=== PATIENT | female | born 1995 | race Asian ===

== ENCOUNTER 2016-03-15 00:04 | Emergency (ER) | payer OTHER ==
[~2016-03-15] VITALS: Ht 162.6 cm; Wt 52.9 kg
[2016-03-15 00:06] VITALS: TEMP 37.3; Ht 162.6 cm; Wt 52.9 kg
[2016-03-15 00:42] LABS: BASO % 1.2 %; BASO ABS # 0.05 K/uL (0-0.2); HEMATOCRIT 34.6 % (37-47); LYMPH % 21.1 %; LYMPH ABS # 0.87 K/uL (1.2-3.4); MEAN CELL VOLUME 73.9 fL (80-100); MEAN CORPUSCULAR HEMOGLOBIN 22.6 pg (25-34); MEAN CORPUSCULAR HGB CONC 30.6 g/dl (32-36); MEAN PLATELET VOLUME 9.2 fL (7.4-10.4); MONO % 5.1 %; NEUT % 72.6 %; PLATELET COUNT 274 K/uL (130-400); RED BLOOD COUNT 4.68 M/uL (4.2-5.4); WHITE BLOOD COUNT 4.13 K/uL (4.8-10.8)
--- NOTE | 2016-03-15 00:42 | EMERGENCY ROOM VISIT NOTE ---
History Report prepared by Guilherme: Cat Fraser Under the Supervision of: Dr. Omar Flores M.D. First contact with patient: 00:15 Chief Complaint: MENTAL HEALTH EVALUATION Stated Complaint: SENT BY [facility] History of Present Illness The patient is a 20 year old female who presents to the Emergency Room with complaints of issues with self-induced vomiting occurring for the past 2 years and resolving 3 weeks ago. The patient had an eating disorder since high school but reports that she was never treated for it. However, she reports that she has not forced herself to vomit in the past 3 weeks. She has been on a healthy diet for the past 3 weeks. In the past few weeks, she has gained 10 pounds and now weighs 115 pounds. Today, she had to answer some questions about an incident regarding a friend. She had to tell the officer that she had a history of eating disorder symptoms. She has never been diagnosed with an eating disorder and has never received any lab work. She denies any history of depression. The patient does not follow with a psychiatrist or counselor. The officer suggested that she comes to the Emergency Room. She currently denies any suicidal or homicidal ideation. She currently denies any pain. The patient denies any fevers, abdominal pain, body aches, or any other complaints. The patient denies any chance of . She denies any drug or alcohol use. She denies any control medication. Source of History: patient Onset: 2 years ago Position: other (global) Symptom Intensity: No pain Quality: other (issues with self-induced vomiting) Associated Symptoms: No abdominal pain, No fevers Review of Systems See HPI for pertinent positives & negatives. A total of 10 systems reviewed and were otherwise negative. Past Medical & Surgical Medical Problems: (1) No Known Active Medical Problems Family History Patient reports no known family medical history. Social History Smoking Status: Never Smoker Marital Status: single Occupation Status: [employer] student Current/Historical Medications No Active Prescriptions or Reported Meds Allergies Coded Allergies: No Known Allergies (Unverified , 03/15/16) Physical Exam Vital Signs Date Time Temp Pulse Resp B/P Pulse Ox O2 Delivery O2 Flow Rate FiO2 03/15/16 04:22 58 18 99/78 99 Room Air 03/15/16 02:15 55 16 90/49 99 Room Air 03/15/16 00:06 37.3 70 18 130/86 94 Room Air Physical Exam GENERAL: Patient is sad appearing and in minimal distress. HEENT: No acute trauma, normocephalic atraumatic, mucous membranes moist, no nasal congestion, no scleral icterus. NECK: No stridor, no adenopathy, no meningismus, trachea is midline. LUNGS: No dyspnea. Clear to auscultation and equal bilaterally. No wheeze, no rhonchi. HEART: Regular rate and rhythm. No murmurs, rubs, gallops appreciated. ABDOMEN: Soft, nontender, bowel sounds positive, no masses appreciated, no peritonitis. BACK: No midline tenderness, no CVA tenderness EXTREMITIES: Normal motion all extremities, no cyanosis, no edema. NEUROLOGIC: Alert and oriented, no acute motor or sensory deficits, no focal weakness, cranial nerves grossly intact. SKIN: No rash, no jaundice, no diaphoresis. Medical Decision & Procedures Laboratory Results 03/15/16 00:28 Red Blood Count 4.68, Mean Corpuscular Volume 73.9, Mean Corpuscular Hemoglobin 22.6, Mean Corpuscular Hemoglobin Concent 30.6, Mean Platelet Volume 9.2, Neutrophils (%) (Auto) 72.6, Lymphocytes (%) (Auto) 21.1, Monocytes (%) (Auto) 5.1, Eosinophils (%) (Auto) 0.0, Basophils (%) (Auto) 1.2, Neutrophils # (Auto) 3.00, Lymphocytes # (Auto) 0.87, Monocytes # (Auto) 0.21, Eosinophils # (Auto) 0.00, Basophils # (Auto) 0.05 03/15/16 00:28 Test 03/15/16 00:28 03/15/16 01:00 White Blood Count 4.13 K/uL (4.8-10.8) Red Blood Count 4.68 M/uL (4.2-5.4) Hemoglobin 10.6 g/dL (12.0-16.0) Hematocrit 34.6 % (37-47) Mean Corpuscular Volume 73.9 fL (80-100) Mean Corpuscular Hemoglobin 22.6 pg (25-34) Mean Corpuscular Hemoglobin Concent 30.6 g/dl (32-36) Platelet Count 274 K/uL (130-400) Mean Platelet Volume 9.2 fL (7.4-10.4) Neutrophils (%) (Auto) 72.6 % Lymphocytes (%) (Auto) 21.1 % Monocytes (%) (Auto) 5.1 % Eosinophils (%) (Auto) 0.0 % Basophils (%) (Auto) 1.2 % Neutrophils # (Auto) 3.00 K/uL (1.4-6.5) Lymphocytes # (Auto) 0.87 K/uL (1.2-3.4) Monocytes # (Auto) 0.21 K/uL (0.11-0.59) Eosinophils # (Auto) 0.00 K/uL (0-0.5) Basophils # (Auto) 0.05 K/uL (0-0.2) RDW Standard Deviation 39.4 fL (36.4-46.3) RDW Coefficient of Variation 15.0 % (11.5-14.5) Immature Granulocyte % (Auto) 0.0 % Immature Granulocyte # (Auto) 0.00 K/uL (0.00-0.02) Polychromasia 1+ Ovalocytes 1+ Anion Gap 8.0 mmol/L (3-11) Est Creatinine Clear Calc Drug Dose 107.1 ml/min Estimated GFR () 144.6 Estimated GFR (Non- 124.7 BUN/Creatinine Ratio 19.6 (10-20) Calcium Level 9.1 mg/dl (8.5-10.1) Phosphorus Level 3.1 mg/dl (2.5-4.9) Magnesium Level 2.4 mg/dl (1.8-2.4) Total Bilirubin 0.2 mg/dl (0.2-1) Aspartate Amino Transf (AST/SGOT) 28 U/L (15-37) Alanine Aminotransferase (ALT/SGPT) 32 U/L (12-78) Alkaline Phosphatase 95 U/L (45-117) Total Protein 7.8 gm/dl (6.4-8.2) Albumin 4.4 gm/dl (3.4-5.0) Globulin 3.4 gm/dl (2.5-4.0) Albumin/Globulin Ratio 1.3 (0.9-2) Thyroid Stimulating Hormone (TSH) 1.860 uIu/ml (0.300-4.500) Salicylates Level < 1.7 mg/dl (2.8-20) Acetaminophen Level < 2 ug/ml (10-30) Ethyl Alcohol mg/dL < 3.0 mg/dl (0-3) Urine Color YELLOW Urine Appearance CLOUDY (CLEAR) Urine pH >= 9.0 (4.5-7.5) Urine Specific [place] 1.021 (1.000-1.030) Urine Protein NEG (NEG) Urine Glucose (UA) NEG (NEG) Urine Ketones NEG (NEG) Urine Occult Blood NEG (NEG) Urine Nitrite NEG (NEG) Urine Bilirubin NEG (NEG) Urine Urobilinogen NEG (NEG) Urine Leukocyte Esterase MODERATE (NEG) Urine WBC (Auto) >30 /hpf (0-5) Urine RBC (Auto) 5-10 /hpf (0-4) Urine Hyaline Casts (Auto) 1-5 /lpf (0-5) Urine Epithelial Cells (Auto) >30 /lpf (0-5) Urine Bacteria (Auto) 1+ (NEG) Urine Test NEG (NEG) Urine Opiates Screen NEG (NEG) Urine Methadone, Qualitative NEG (NEG) Urine Barbiturates NEG (NEG) Urine Phencyclidine (PCP) Level NEG (NEG) Ur Amphetamine/Methamphetamine NEG (NEG) MDMA (Ecstasy) Screen NEG (NEG) Urine Benzodiazepines Screen NEG (NEG) Urine Cocaine Metabolite NEG (NEG) Urine Marijuana (THC) NEG (NEG) Laboratory results as reviewed by me. ED Course 0015: The patient was evaluated in room A02. A complete history and physical exam was performed. 0124: [address] [place] [address] is evaluating the patient. 0158: I reevaluated the patient who is doing well. She denies any UTI symptoms. 0348: The patient is still talking to [address] [place] [address]. 0409: Reevaluated the patient. Discussed results and discharge instructions: She verbalized understanding and agreement. The patient is ready for discharge. Medical Decision Differential: Mood Disorder, Overdose, Infectious, Electrolyte Abnormality, Cardiac, Hepatic, Endocrine, Toxicologic, Neurologic, amongst other pathologies entertained. 20 yr old female arrives under vague circumstances as she admits she and her friend were being interviewed by police but she refuses to say why they were talking to them (states "confidential.") She admits she told them she has eating disorder and they brought her here. Denies suicidal/homicidal ideation and even denies depression. States that bulimia has actually been much better last few weeks with weight gain and no vomiting in last few weeks. States she would like outpatient follow up and denies any need for inpatient treatment. She looks well, healthy and in no distress. Labs unremarkable and she has no drugs in system. She was evaluated by [facility] who will help in setting up outpatient care. Patient aware she can return at any time if she feels she is a risk to herself or others. Impression Primary Impression: Bulimia Additional Impression: Eating disorder Scribe Attestation The scribe's documentation has been prepared under my direction and personally reviewed by me in its entirety. I confirm that the note above accurately reflects all work, treatment, procedures, and medical decision making performed by me. Departure Information Dispostion Home / Self-Care Prescriptions No Active Prescriptions or Reported Meds Referrals [facility] Forms HOME CARE DOCUMENTATION FORM, IMPORTANT VISIT INFORMATION Patient Instructions A Signature Page, ED Bulimia, My [facility] Problem Qualifiers
[2016-03-15 01:02] LABS: BUN/CREATININE RATIO 19.6 (10-20); CALCIUM 9.1 mg/dl (8.5-10.1); CREATININE 0.7 mg/dl (0.60-1.20); MAGNESIUM 2.4 mg/dl (1.8-2.4); POTASSIUM 3.6 mmol/L (3.5-5.1)
[2016-03-15 01:10] LABS: COMPLETE YES; OVALOCYTES 1+; POLYCHROMASIA 1+
[2016-03-15 01:13] LABS: ALB/GLOB RATIO 1.3 (0.9-2); PHOSPHORUS 3.1 mg/dl (2.5-4.9); THYROID STIMULATING HORMONE 1.86 uIu/ml (0.300-4.500)
[2016-03-15 01:24] LABS: ACETAMINOPHEN < 2 ug/ml (10-30)
[2016-03-15 01:31] LABS: MANUAL MICROSCOPIC REQUIRED? NO; REVIEW REQ? YES; URINE APPEARANCE CLOUDY (CLEAR); URINE BILIRUBIN NEG (NEG); URINE COLOR YELLOW; URINE EPITHELIAL CELL AUTO >30 /lpf (0-5); URINE NITRITE NEG (NEG); URINE PH >= 9.0 (4.5-7.5); URINE SPECIFIC GRAVITY 1.021 (1.000-1.030); UROBILINOGEN NEG (NEG); ZZUR CULT IF INDIC CLEAN CATCH YES
[2016-03-15 02:28] LABS: BENZODIAZEPINE, URINE NEG (NEG); COCAINE,URINE NEG (NEG); PHENCYCLIDINE, URINE NEG (NEG)
[2016-03-15 04:22] VITALS: BP 99/78; PULSE 58; O2SAT 99
== END 2016-03-15 04:43 | disposition home or self-care (01) ==
LOC: C.EDB 00:06 → C.EDA 04:43
DX: F50.2 Bulimia nervosa (principal)